=== PATIENT | female | born 1985 | race Hispanic/Latino ===

== ENCOUNTER 2024-05-28 09:35 | Emergency (ER) | payer MEDICAID ==
[~2024-05-28] VITALS: Ht 160 cm; Wt 56.7 kg
[2024-05-28 10:10] LABS: BASOPHILS # (AUTO) 0.04 K/uL (0.00-0.20); BASOPHILS % (AUTO) 0.6 % (0.0-5.0); EOSINOPHILS # (AUTO) 0.08 K/uL (0.00-0.70); EOSINOPHILS % (AUTO) 1.2 % (0.0-8.0); HEMATOCRIT 40.7 % (36-48); IMMATURE GRANULOCYTE ABSOLUTE 0.01 K/uL (0-1); LYMPHOCYTES # (AUTO) 1.4 K/uL (1.0-4.8); LYMPHOCYTES % (AUTO) 21.7 % (21.0-51.0); MEAN CORPUSCULAR HEMOGLOBIN 31.4 pg (27.0-33.0); MEAN CORPUSCULAR HGB CONC 34.9 g/dL (32.0-36.0); MONOCYTES # (AUTO) 0.3 K/uL (0.1-1.0); MONOCYTES % (AUTO) 3.9 % (3.0-13.0); NEUTROPHILS # (AUTO) 4.8 K/uL (1.8-7.7); NEUTROPHILS % (AUTO) 72.4 % (40.0-77.0); PLATELET COUNT (AUTO) 263 K/uL (130-400); RED BLOOD CELL COUNT(AUTO) 4.52 MIL/uL (4.00-5.50); RED CELL DISTRIBUTION WIDTH 11.9 % (11.0-15.5); WHITE BLOOD COUNT (AUTO) 6.6 K/uL (4.8-10.8)
--- NOTE | 2024-05-28 10:10 | NUR ---
US AT BESIDE
[2024-05-28 10:17] LABS: CREATININE 0.5 mg/dL (0.5-1.0); POTASSIUM 3.7 mmol/L (3.5-5.1)
--- NOTE | 2024-05-28 10:32 | HMCIMG ---
US OB <14 WEEKS HISTORY: confirm IUP TECHNIQUE: Real-time pelvic ultrasound was performed. FINDINGS: Uterus measures 11.3 cm. Endometrium measures 1.1 cm in thickness with fluid within it. Questionable pole seen in the cervix/vaginal canal compatible 12 weeks and 5 days. No heart rate is identified. Right ovary measures 2.3 cm with vascular flow. There is a right ovarian cyst measuring 1 cm per left ovary was not visualized. IMPRESSION: Uterus measures 11.3 cm. Endometrium measures 1.1 cm in thickness with fluid within it. Questionable pole seen in the cervix/vaginal canal compatible 12 weeks and 5 days. No heart rate is identified. Correlation with serial hCG and ultrasound recommended.
[2024-05-28 10:44] LABS: ALBUMIN 3.9 g/dL (3.5-5.0); BILIRUBIN,DIRECT 0.1 mg/dL (0.0-0.3); BILIRUBIN,TOTAL 0.6 mg/dL (0.2-1.0); TOTAL PROTEIN, SERUM 7.5 g/dL (6.0-8.3)
--- NOTE | 2024-05-28 10:50 | ERN ---
ED Note History of Present Illness Stated Complaint: VAGINAL BLEED/MISCARRAGE Chief Complaint: Vaginal Bleeding Time Seen by MD: 09:44 Dictation: 39-year-old female presents to the ED for evaluation of possible miscarriage onset 1 hour ago. Patient states she is currently around 12 weeks but has not been seen by OBGYN. Patient reports vaginal bleeding, blood clots, abdominal cramping, but denies any other associated symptoms at this time. Allergies: Coded Allergies: No Known Drug Allergies (Unverified Allergy, Unknown, 05/28/24) Past Medical History Past Medical History: No Pertinent History Surgical History: None Review of System Dictation Constitutional: Negative for fever,chills, and weight loss Eyes: Negative for injury, pain,redness, and discharge ENT: Negative for injury,pain or swelling Cardiovascular: Negative for chest pain, palpitations, and edema Respiratory: Negative for shortness of breath, cough, and wheezing, Abdomen/GI: Positive for abdominal cramping Negative for nausea, vomiting, diarrhea, and constipation Back: Negative for injury and pain : Positive for vaginal bleeding, blood clots MS/Extremity: Negative for injury and deformity Skin: Negative for rash, and discoloration Neuro: Negative for headache, weakness, numbness, tingling, and seizure Psych: Negative for suicide ideation, homicidal ideation, and hallucinations Initial Vital Sign VS Vital Signs Date Time Temp Pulse Resp B/P (MAP) Pulse Ox O2 Delivery O2 Flow Rate FiO2 05/28/24 09:39 98.8 74 20 121/75 99 Room Air 0 05/28/24 09:50 21 Physical Exam Dictation General: awake, alert, NAD Head/Face: Normocephalic, atraumatic Eyes: PERRL, EOMI, vision at baseline ENT: oral cavity clear, TMs clear, no signs of infection Neck: Trachea midline, supple, no nuchal rigidity Cardiovascular: RRR, normal S1/S2, No MRGs, no JVD Respiratory: CTAB, no respiratory distress, No rales or wheezes Abdomen: Soft, non-tender, non-distended, normal bowel sounds, no guarding or rebound. : Pelvic exam- large clots, cervical os unable to visualize due to clots Skin: Warm, dry, normal turgor, no rash MS/Extremity: Pulses equal, no cyanosis, neurovascular intact, FROM Neuro: COAx4, GCS 15, strength 5/5, CN 2-12 intact, normal cerebellar exam, normal gait, Psych: Normal behavior, mood, and affect normal Results (Laboratory/Radiology) Laboratory/Radiology Laboratory Tests Test 05/28/24 09:55 05/28/24 18:09 White Blood Count 6.6 K/uL (4.8-10.8) Red Blood Count 4.52 MIL/uL (4.00-5.50) Hemoglobin 14.2 g/dL (12.0-16.0) 9.7 g/dL (12.0-16.0) #L Hematocrit 40.7 % (36-48) 28.8 % (36-48) #L Mean Corpuscular Volume 90.0 fL (79-99) Mean Corpuscular Hemoglobin 31.4 pg (27.0-33.0) Mean Corpuscular Hemoglobin Concent 34.9 g/dL (32.0-36.0) Red Cell Distribution Width 11.9 % (11.0-15.5) Platelet Count 263 K/uL (130-400) Mean Platelet Volume 9.9 fL (7.5-10.5) Immature Granulocyte % (Auto) 0.2 % (0-1) Neutrophils (%) (Auto) 72.4 % (40.0-77.0) Lymphocytes (%) (Auto) 21.7 % (21.0-51.0) Monocytes (%) (Auto) 3.9 % (3.0-13.0) Eosinophils (%) (Auto) 1.2 % (0.0-8.0) Basophils (%) (Auto) 0.6 % (0.0-5.0) Neutrophils # (Auto) 4.8 K/uL (1.8-7.7) Lymphocytes # (Auto) 1.4 K/uL (1.0-4.8) Monocytes # (Auto) 0.3 K/uL (0.1-1.0) Eosinophils # (Auto) 0.08 K/uL (0.00-0.70) Basophils # (Auto) 0.04 K/uL (0.00-0.20) Absolute Immature Granulocyte (auto 0.01 K/uL (0-1) Nucleated Red Blood Cells 0.0 % (0.0-0.19) Sodium Level 140 mmol/L (136-145) Potassium Level 3.7 mmol/L (3.5-5.1) Chloride Level 103 mmol/L (101-111) Carbon Dioxide Level 27 mmol/L (21-32) Blood Urea Nitrogen 9 mg/dL (7-18) Creatinine 0.5 mg/dL (0.5-1.0) Glomerular Filtration Rate Calc 122 mL/min (>90) Random Glucose 96 mg/dL (70-105) Total Calcium 8.6 mg/dL (8.5-10.1) Total Bilirubin 0.6 mg/dL (0.2-1.0) Direct Bilirubin 0.1 mg/dL (0.0-0.3) Aspartate Amino Transf (AST/SGOT) 19 U/L (10-37) Alanine Aminotransferase (ALT/SGPT) 18 U/L (12-78) Alkaline Phosphatase 60 U/L (50-136) Total Protein 7.5 g/dL (6.0-8.3) Albumin 3.9 g/dL (3.5-5.0) Human Chorionic Gonadotropin, Quant 3840 mIU/mL (0-5) H Labs Reviewed?: Yes Ultrasound Comment: REASON: confirm IUP ORDERING PHYSICIAN: MICHAEL SHERIFF MD PROCEDURE: OB <14 - US OB <14 WEEKS US OB <14 WEEKS HISTORY: confirm IUP TECHNIQUE: Real-time pelvic ultrasound was performed. FINDINGS: Uterus measures 11.3 cm. Endometrium measures 1.1 cm in thickness with fluid within it. Questionable pole seen in the cervix/vaginal canal compatible 12 weeks and 5 days. No heart rate is identified. Right ovary measures 2.3 cm with vascular flow. There is a right ovarian cyst measuring 1 cm per left ovary was not visualized. IMPRESSION: Uterus measures 11.3 cm. Endometrium measures 1.1 cm in thickness with fluid within it. Questionable pole seen in the cervix/vaginal canal compatible 12 weeks and 5 days. No heart rate is identified. Correlation with serial hCG and ultrasound recommended. DICTATED BY: JENNIFER PALM MD DATE: 05/28/24 1029 REASON: Ab in process ORDERING PHYSICIAN: MICHAEL SHERIFF MD PROCEDURE: OB <14 - US OB <14 WEEKS US OB <14 WEEKS HISTORY: in process COMPARISON: Same day ultrasound TECHNIQUE: Limited obstetrical ultrasound study was performed. FINDINGS: Patient is in in progress. There appears to be blood clot material in the cervix/vaginal canal measuring 9.5 x 8.9 x 8.5 cm. Follow-up examination would be helpful. Please see previous report. IMPRESSION: 1. Findings as described above. DICTATED BY: JULIET HERNANDES MD DATE: 05/28/24 1551 ED Course ED Course Orders Procedure Category Date Status Time Hcg,Quantitative LAB 05/28/24 Complete 09:44 Cbc With Differential LAB 05/28/24 Complete 09:44 Basic Metabolic Panel LAB 05/28/24 Complete 09:44 Hepatic Function Panel LAB 05/28/24 Complete 09:44 Type And Screen BBK 05/28/24 Complete 09:44 Us Ob <14 Weeks US 05/28/24 Resulted 09:44 Urinalysis Profile LAB 05/28/24 Logged 09:44 Morphine 4mg Syg PHA 05/28/24 Complete (Morphine 4mg Syg) 10:30 Ondansetron 4mg Inj PHA 05/28/24 Complete (Zofran 4mg Inj) 10:30 Us Ob <14 Weeks US 05/28/24 Resulted 15:08 0.9%Nacl 1000ml (Ns PHA 05/28/24 Complete 1000ml) 15:30 0.9%Nacl 1000ml (Ns PHA 05/28/24 Complete 1000ml) 18:00 Pathology Request LAB 05/28/24 In Process Tissue 15:49 Hemoglobin And LAB 05/28/24 Complete Hematocrit 18:03 Current Medications Medications (Trade) Dose Ordered Sig/Omayra Route PRN Reason Start Time Stop Time Status Last Admin Dose Admin Morphine Sulfate (morPHINE 4MG SYG) 4 mg ONCE ONCE IVP 05/28/24 10:30 05/28/24 10:31 DC 05/28/24 10:51 Ondansetron HCl (zoFRAN 4MG INJ) 4 mg ONCE ONCE IVP 05/28/24 10:30 05/28/24 10:31 DC 05/28/24 10:51 Sodium Chloride 1,000 ml @ 0 mls/hr ONCE ONCE IV 05/28/24 15:30 05/28/24 15:33 DC 05/28/24 16:44 Sodium Chloride 1,000 ml @ 0 mls/hr ONCE ONCE IV 05/28/24 18:00 05/28/24 18:01 DC 05/28/24 18:10 Vital Signs Date Time Temp Pulse Resp B/P (MAP) Pulse Ox O2 Delivery O2 Flow Rate FiO2 05/28/24 18:10 98.6 69 16 94/73 98 Room Air* 0 05/28/24 17:00 98.6 69 16 98/52 98 Room Air* 0 21 05/28/24 16:00 98.6 69 16 91/48 98 Room Air* 0 05/28/24 15:00 60 15 72/38 96 Room Air* 0 05/28/24 14:00 98.8 64 16 89/55 96 Room Air* 0 05/28/24 13:00 98.8 64 16 89/52 95 Room Air* 0 05/28/24 12:00 98.8 63 16 93/57 96 Room Air* 0 05/28/24 11:12 67 14 101/57 96 Room Air* 0 05/28/24 09:50 98.8 74 18 121/75 99 Room Air* 0 05/28/24 09:39 98.8 74 20 121/75 99 Room Air 0 Medical Decision Making MDM MDM: Differential diagnosis: Miscarriage, incomplete , second trimester 1828- Dr. Read OBGYN consult, accepts patient for admission 1835- [facility] ER physician accepts patient for ER to ER transfer Rationale: Tests considered and ordered secondary to shared decision making include: labs and radiology Risk of complication and/or morbidity or mortality of patient management: None Medications-Per medication reconciliation Need for hospitalization: Patient does meet criteria for hospitalization. Patient will be transferred to [facility] Need for emergency major/minor surgery: No There are no social concerns with this patient. I independently interpreted the test that were performed, results were reviewed by me and considered findings on radiology if ordered. Medical management and examination interpretation discussions were had by me with other qualified healthcare professionals as indicated for the patient's c are. Critical Care Note Critical Time: other (Total critical care time was 33 minutes. Excluding time for procedures. Management of critically ill patient with concern for acute decompensation. Management included interpretation of laboratory values and imaging, hemodynamics, time for consultation with consultants and admitting physician.) DX & DISP Disposition: Transfer Departure Impression: Primary Impression: Incomplete Additional Impression: Second trimester Condition: Stable Referrals: SELF,REFERRAL (PCP) MICHAEL SHERIFF MD May 28, 2024 10:50
[2024-05-28] MEDS: ondanSETRON 4MG INJ IVP ONE (10:51)
[2024-05-28] MEDS: morPHINE 4 MG SYG IVP ONE (10:51)
--- NOTE | 2024-05-28 11:28 | NUR ---
PT AND EXPRESED THEIR WISH TO BURY THE PRODUCTS OF CONCEPTION.
--- NOTE | 2024-05-28 13:25 | NUR ---
FIRST LARGE BLOOD CLOT PASSED.PT DENIES PAIN. Addendum: 05/28/24 at 1823 by EPIGLERGUE BLOOD CLOT'S WEIGHT 30G
--- NOTE | 2024-05-28 15:45 | NUR ---
PT CONTINUES TO BE PASSING LARGE BLOOD CLOTS.DENIES PAIN.
--- NOTE | 2024-05-28 15:57 | HMCIMG ---
US OB <14 WEEKS HISTORY: in process COMPARISON: Same day ultrasound TECHNIQUE: Limited obstetrical ultrasound study was performed. FINDINGS: Patient is in in progress. There appears to be blood clot material in the cervix/vaginal canal measuring 9.5 x 8.9 x 8.5 cm. Follow-up examination would be helpful. Please see previous report. IMPRESSION: 1. Findings as described above.
--- NOTE | 2024-05-28 16:10 | NUR ---
[facility] [facility] CONTACTED.TALKED TO SHAY PRATHER REGARDING REQUEST ON BEHALF OF PT & PARTNER. GAVE HER THEIR NUMBERS WITH THEIR PERMISSION AND HER'S TO PT.
[2024-05-28] MEDS: 0.9%NACL 1000ML 1,000 ML IV ONE ×2 (16:44→18:10)
--- NOTE | 2024-05-28 17:15 | NUR ---
CHARGE NURSE IGNACIA TAKES PRODUCT OF CONCEPTION TO THE LAB.
[2024-05-28 18:13] LABS: HEMATOCRIT 28.8 % (36-48)
--- NOTE | 2024-05-28 18:15 | NUR ---
TRANSFER FORMS: CONSENT SIGNED AND MOT STARTED
--- NOTE | 2024-05-28 18:19 | NUR ---
PER PT: LNMP 02.15.2024 G5 P 5 AB1 (1 SET OF TWINS) MEDICAL/SURGICAL HX: ROOT CANAL
--- NOTE | 2024-05-28 18:58 | NUR ---
REPORT GIVEN TO ANGEL PENA AT [facility].
--- NOTE | 2024-05-28 19:01 | NUR ---
PCS FORM: [facility] PCS FORM WAS FAXED AND CONFIRMED RECEIPT BY [facility] PERSONNEL. THEY WILL COME CODE 3 TO TRANSFER PT TO [facility]. DR BUSTOS WILL BE LINING MAKER HAND AND DR MARTI TIRADO IS THE ACCEPTING ED MD.
[2024-05-28 19:04] VITALS: BP 103/55; PULSE 74; RESP 16; TEMP 98.6; O2SAT 99
--- NOTE | 2024-05-28 19:05 | NUR ---
PT CURRENTLY IS AWAKE AND ALERT AT THIS TIME. REPORT HAS BEEN CALLED AND PENDING [facility] EMS ARRIVAL.
== END 2024-05-28 19:23 | disposition short-term general hospital (02) ==
LOC: EDH 09:35
DX: O03.4 Incomplete spontaneous abortion without complication (principal); O26.891 Other specified pregnancy related conditions, first trimester; R10.2 Pelvic and perineal pain; Z3A.12 12 weeks gestation of pregnancy
CPT/HCPCS: 99291; 96374; 76801; 96361; 96375; 80076; 80048; 84702; 85025; 86850; 86900; 86901; 36415; 88305; 76817; 85014; 85018; J7030 ×2; J2405; J2270